=== PATIENT | male | born 1985 | race Caucasian/White ===

== ENCOUNTER 2023-06-10 06:11 | Emergency (ER) | payer MEDICAID, OTHER ==
[~2023-06-10] VITALS: Ht 170.2 cm; Wt 83.9 kg
[2023-06-10 06:21] VITALS: TEMP 98.1; O2SAT 100
[2023-06-10] MEDS ORDERED: IBUPROFEN 600MG TABLET PO ONE (06:30)
[2023-06-10 06:43] VITALS: BP 118/75; PULSE 90; RESP 14
[2023-06-10] MEDS ORDERED: IBUP-2029 MT (09:22)
== END 2023-06-10 10:20 | disposition home or self-care (01) ==
LOC: ER 06:11
DX: S82.402A Unspecified fracture of shaft of left fibula, initial encounter for closed fracture (principal); M97.22XA Periprosthetic fracture around internal prosthetic left ankle joint, initial encounter; W50.2XXA Accidental twist by another person, initial encounter; Y93.89 Activity, other specified; Y92.89 Other specified places as the place of occurrence of the external cause; Y99.8 Other external cause status
CPT/HCPCS: 93971; 73610; 29515; 99284; Z7610